=== PATIENT | male | born 1960 | race Caucasian/White ===

== ENCOUNTER 2016-08-03 21:47 | Emergency (ER) | payer BC ==
[2016-08-03] MEDS ORDERED: DILAUDID 1 MG/ML AMP ONE ×2 (22:46→22:51)
== END 2016-08-04 00:56 | disposition home or self-care (01) ==
LOC: ER 21:47
DX: S70.01XA Contusion of right hip, initial encounter (principal); S80.01XA Contusion of right knee, initial encounter; S90.01XA Contusion of right ankle, initial encounter; S40.012A Contusion of left shoulder, initial encounter; W01.0XXA Fall on same level from slipping, tripping and stumbling without subsequent striking against object, initial encounter; Y92.008 Other place in unspecified non-institutional (private) residence as the place of occurrence of the external cause; Z79.899 Other long term (current) drug therapy; I10 Essential (primary) hypertension; Z96.641 Presence of right artificial hip joint
CPT/HCPCS: 70450; 72125; 96372